=== PATIENT | male | born 1955 | race Caucasian/White ===

== ENCOUNTER → 2024-06-03 | Outpatient (CLI) | payer MEDICARE, MEDICAID ==
[~2024-06-03] VITALS: Ht 15.2 cm; Wt 172.0 kg
[~2024-06-03] MED LIST: CLARITIN 1010 MG/TAB PO; COLACE 100100 MG/CAP PO; DELATESTRYL200 MG/ML IM; ELIQUIS 5MG PO; FENTANYL 50MCG; FERRO-TIME325 MG PO; FLOMAX 0.40.4 MG/CAP PO; Gadoterate 20 ML VIAL IV ONE; INSULIN LI100 UNIT/4 SQ; LANTUS SOLOS100 U/ML SQ; LASIX 20MG TABL20 MG PO; LIALDA 1.2 GM1.2 GM PO; LIORESAL 1010 MG/TAB PO; LIPITOR 40MG TA40 MG PO; MOBIC15 MG PO; NEURONTIN300 MG/CAP PO; NORCO 325 MG-7.1 TAB PO; NORVASC 5MG5 MG/TAB PO; PAXIL 20MG20 MG PO; PRINIVIL10 MG PO; PROTONIX 40MG T40 MG PO; SYNTHROID 0.0.025 MG PO; TRULICITY1.5 MG/0.5
[2024-06-03 12:53] VITALS: BP 143/81; PULSE 79
[2024-06-03 14:28] VITALS: BP 148/81; PULSE 80
== END ==
LOC: COL.RAD 11:30
DX: N40.0 Benign prostatic hyperplasia without lower urinary tract symptoms (principal); Q98.0 Klinefelter syndrome karyotype 47, XXY; R60.0 Localized edema
CPT/HCPCS: A9575